=== PATIENT | female | born 1990 | race Caucasian/White ===

== ENCOUNTER 2022-09-24 11:04 | Outpatient (CLI) | payer OTHER, SELFPAY ==
[2022-09-24 16:21] LABS: Cholesterol* 206 mg/dL (90-199); Glucose* 83 mg/dL (60-115)
[2022-09-24 16:22] LABS: HDL Cholesterol* 64 mg/dL (>=50); LDL Cholesterol Calculated 132 mg/dL (<100); Triglycerides* 51 mg/dL (40-149)
== END 2022-09-24 11:05 | disposition home or self-care (01) ==
LOC: FRMREF 11:05
PROVIDERS: Visit Provider Registered Nurse
DX: Z01.419 Encounter for gynecological examination (general) (routine) without abnormal findings (principal); Z13.1 Encounter for screening for diabetes mellitus; Z13.6 Encounter for screening for cardiovascular disorders
CPT/HCPCS: 80061; 82947

== ENCOUNTER 2022-10-19 11:10 | Outpatient (CLI) | payer OTHER, SELFPAY ==
[2022-10-24 15:10] LABS: Sex Hormone Binding Globulin 76 nmol/L (25-122); Testosterone, Free LC-MS/MS 1.9 pg/mL (1.3-9.2); Testosterone, LC-MS/MS 20 ng/dL (9-55)
== END 2022-10-19 11:11 | disposition home or self-care (01) ==
PROVIDERS: Visit Provider Obstetrics & Gynecology
DX: F52.0 Hypoactive sexual desire disorder (principal)
CPT/HCPCS: 84270; 84402; 84403; 84443

== ENCOUNTER 2023-01-04 09:00 | Outpatient (CLI) | payer OTHER, SELFPAY | END 2023-01-04 09:01 | disposition home or self-care (01) | LOC: NFLDREF 01-09 06:00 | PROVIDERS: Visit Provider Obstetrics & Gynecology | DX: F52.0 Hypoactive sexual desire disorder (principal) | CPT/HCPCS: 84403 ==

== ENCOUNTER 2023-04-28 16:30 | Outpatient (CLI) | payer OTHER, SELFPAY | END 2023-04-28 16:31 | disposition home or self-care (01) | PROVIDERS: Visit Provider Emergency Medicine | DX: Z00.00 Encounter for general adult medical examination without abnormal findings (principal); R53.81 Other malaise | CPT/HCPCS: 80053; 82306; 82607 ==